=== PATIENT | male | born 1995 | race Caucasian/White ===

== ENCOUNTER 2020-09-26 22:16 | Emergency (ER) | payer BC ==
[~2020-09-26] VITALS: Ht 188 cm; Wt 96.2 kg
[2020-09-26 22:49] VITALS: Ht 188 cm; Wt 96.2 kg
[2020-09-27 01:47] VITALS: BP 143/104
== END 2020-09-27 01:47 | disposition home or self-care (01) ==
LOC: ED 22:16
DX: R06.02 Shortness of breath (principal); Z20.828 Contact with and (suspected) exposure to other viral communicable diseases